=== PATIENT | male | born 1970 | race Caucasian/White ===

== ENCOUNTER 2018-01-08 08:56 | Emergency (ER) | payer BC ==
[2018-01-08 09:02] VITALS: RESP 18
--- NOTE | 2018-01-08 09:18 | ED ---
General Adult HPI - General Chief complaint: Extremity Problem,Nontraumatic Stated complaint: left leg pain Time Seen by Provider: 01/08/18 09:10 Source: patient, RN notes reviewed Mode of arrival: ambulatory Limitations: no limitations - History of Present Illness Initial comments: Patient is a pleasant 47-year-old male presenting to the emergency department with left calf discomfort. Patient states a few weeks ago he did drop a piece of angle iron onto his left great proximal toe. Patient has had discomfort and swelling since that time that is only somewhat improved. Patient states then around a week ago he rolled his ankle. Patient did hear some pops. Patient still has some discomfort of left ankle however that has mostly improved. Patient states the last day or 2 he is having some discomfort of his left calf region. Patient has not noticed swelling. No chest pain. No dyspnea. No fevers. No erythema. - Related Data Home Medications Medication Instructions Recorded Confirmed No Known Home Medications 01/08/18 01/08/18 Allergies Allergy/AdvReac Type Severity Reaction Status Date / Time No Known Allergies Allergy Verified 01/08/18 09:43 Review of Systems ROS Statement: Those systems with pertinent positive or pertinent negative responses have been documented in the HPI. ROS Other: All systems not noted in ROS Statement are negative. Constitutional: Denies: fever Eyes: Denies: eye pain ENT: Denies: ear pain Respiratory: Denies: cough, dyspnea Cardiovascular: Denies: chest pain Endocrine: Denies: fatigue Gastrointestinal: Denies: abdominal pain Genitourinary: Denies: dysuria Musculoskeletal: Denies: back pain Skin: Denies: rash Neurological: Denies: weakness Past Medical History Past Medical History: No Reported History History of Any Multi-Drug Resistant Organisms: None Reported Past Surgical History: Hernia Repair Past Psychological History: No Psychological Hx Reported Smoking Status: Never smoker Past Alcohol Use History: Occasional Past Drug Use History: None Reported General Exam Limitations: no limitations General appearance: alert, in no apparent distress Head exam: Present: atraumatic Eye exam: Present: normal appearance, PERRL ENT exam: Present: normal oropharynx Neck exam: Present: normal inspection Respiratory exam: Present: normal lung sounds bilaterally. Absent: chest wall tenderness Cardiovascular Exam: Present: regular rate, normal rhythm GI/Abdominal exam: Present: soft. Absent: tenderness Extremities exam: Present: calf tenderness (Mild tenderness left mid to lower calf), other (Left proximal first MCP with swelling and possible deformity. There is tenderness present. There is minimal tenderness left lateral ankle. Mild swelling left lateral ankle) Neurological exam: Present: alert. Absent: motor sensory deficit Psychiatric exam: Present: normal affect, normal mood Skin exam: Present: normal color. Absent: rash Course Vital Signs 01/08/18 08:57 Temperature 97.6 F Pulse Rate 55 L Respiratory 18 Rate Blood Pressure 153/111 O2 Sat by Pulse 98 Oximetry Medical Decision Making - Medical Decision Making Patient updated on results - Radiology Data Radiology results: report reviewed (Ultrasound negative for DVT), image reviewed (X-ray of the left foot shows degenerative changes first MTP. No definite acute fracture. X-ray left ankle shows no acute process.) Disposition Clinical Impression: Leg pain Disposition: HOME SELF-CARE Condition: Stable Instructions: Leg Pain (ED) Additional Instructions: Please follow-up with primary care physician in the next couple days for recheck. Return for increased pain, swelling, chest pain or difficulty breathing, worsening symptoms or other concerns. Is patient prescribed a controlled substance at d/c from ED?: No Referrals: Lottie oSrto MD [Primary Care Provider] - 1-2 days Time of Disposition: 10:34
--- NOTE | 2018-01-08 09:56 | US ---
EXAMINATION TYPE: US venous doppler duplex LE LT DATE OF EXAM: 01/08/2018 9:46 AM COMPARISON: NONE CLINICAL HISTORY: Pain. Intermittent left ankle and calf pain following trauma to foot 3 weeks ago SIDE PERFORMED: Left TECHNIQUE: The lower extremity deep venous system is examined utilizing real time linear array sonog you with graded compression, doppler sonography and color-flow sonography. VESSELS IMAGED: External Iliac Vein (EIV) Common Femoral Vein Deep Femoral Vein Greater Saphenous Vein * Femoral Vein Popliteal Vein Small Saphenous Vein * Proximal Calf Veins (* superficial vessels) Grayscale, color doppler, spectral doppler imaging performed of the deep veins of the left lower extr emity. There is normal flow, compressibility, vascular waveforms. Left Leg: Appears negative for DVT IMPRESSION: No sonographic evidence of deep venous thrombosis within the left lower extremity.
--- NOTE | 2018-01-08 10:12 | XR ---
EXAMINATION TYPE: XR foot complete LT, XR ankle complete LT DATE OF EXAM: 01/08/2018 CLINICAL HISTORY: pain TECHNIQUE: Frontal, lateral and oblique images of the left foot are obtained. COMPARISON: None. FINDINGS: Severe degenerative narrowing first metatarsal phalangeal joint. Associated spur formation. Healed fracture second metatarsal. No acute fracture or dislocation appreciated at this time. IMPRESSION: There is no acute fracture or dislocation. ICD 10 NO FRACTURE, INITIAL EVALUATION EXAMINATION TYPE: XR foot complete LT, XR ankle complete LT DATE OF EXAM: 01/08/2018 COMPARISON: NONE HISTORY: Pain TECHNIQUE: 3 views of the left ankle are submitted for evaluation. FINDINGS: There is no evidence for fracture or dislocation. Ankle mortise is intact. Lateral soft tis trevor swelling noted. IMPRESSION: 1. No evidence for acute fracture.
[2018-01-08 10:50] VITALS: BP 132/87; PULSE 64; TEMP 97.8
== END 2018-01-08 10:50 | disposition home or self-care (01) ==
LOC: EC 08:56
DX: M79.605 Pain in left leg (principal); M79.89 Other specified soft tissue disorders; W20.8XXA Other cause of strike by thrown, projected or falling object, initial encounter
CPT/HCPCS: 99284

== ENCOUNTER 2019-02-27 04:29 | Emergency (ER) | payer BC ==
[2019-02-27 04:37] VITALS: RESP 18
[2019-02-27] MEDS ORDERED: SODIUM CHLORIDE 0.9% 500 ML 500 ML IV STA (04:44)
[2019-02-27] MEDS ORDERED: MORPHINE SULFATE 4 MG/ML SYRINGE IV STA (04:44)
--- NOTE | 2019-02-27 04:47 | ED ---
General Adult HPI - General Chief complaint: Abdominal Pain Stated complaint: Abd Pain Time Seen by Provider: 02/27/19 04:34 Source: patient, family, RN notes reviewed, old records reviewed Mode of arrival: ambulatory Limitations: no limitations - History of Present Illness Initial comments: 48-year-old male presenting for evaluation of lower abdominal pain. Pain is been present for approximately 12 hours. Described as an ache in his lower abdomen. nonradiating.Patient had a normal bowel movement prior to arrival. No diarrhea. He had one episode of vomiting which was induced attempt to improve his symptoms. He states he's had subjective fever and chills. No upper abdominal pain. No dysuria or hematuria. Pain is bilateral. No flank pain. No chest pain or dyspnea. - Related Data Home Medications Medication Instructions Recorded Confirmed No Known Home Medications 01/08/18 01/08/18 Allergies Allergy/AdvReac Type Severity Reaction Status Date / Time No Known Allergies Allergy Verified 02/27/19 04:36 Review of Systems ROS Statement: Those systems with pertinent positive or pertinent negative responses have been documented in the HPI. ROS Other: All systems not noted in ROS Statement are negative. Past Medical History Past Medical History: No Reported History History of Any Multi-Drug Resistant Organisms: None Reported Past Surgical History: Hernia Repair Past Psychological History: No Psychological Hx Reported Smoking Status: Never smoker Past Alcohol Use History: Occasional Past Drug Use History: None Reported General Exam Limitations: no limitations General appearance: alert, in no apparent distress Head exam: Present: atraumatic Eye exam: Present: normal appearance, PERRL ENT exam: Present: normal exam Neck exam: Present: normal inspection. Absent: tenderness, meningismus Respiratory exam: Present: normal lung sounds bilaterally. Absent: respiratory distress, wheezes Cardiovascular Exam: Present: regular rate, normal rhythm GI/Abdominal exam: Present: soft. Absent: distended, tenderness, guarding, rebound, rigid Extremities exam: Present: normal inspection, normal capillary refill. Absent: calf tenderness Back exam: Present: normal inspection Neurological exam: Present: alert, oriented X3, CN II-XII intact. Absent: motor sensory deficit Psychiatric exam: Present: normal affect, normal mood Skin exam: Present: warm, dry, intact. Absent: cyanosis, diaphoretic Course Vital Signs 02/27/19 02/27/19 04:34 05:50 Temperature 97.9 F 98.1 F Pulse Rate 62 57 L Respiratory 18 18 Rate Blood Pressure 154/88 127/83 O2 Sat by Pulse 97 95 Oximetry Medical Decision Making - Medical Decision Making 48-year-old male with lower abdominal pain. Patient well-appearing with stable vitals.abdominal exam negative for focal tenderness rebound or guarding. Patient has mild leukocytosis at 12. He has a mild elevation in serum lipase 400 otherwise laboratory testing is unremarkable, urinalysis negative for infection or hemorrhage. X-ray performed which shows some retained stool otherwise unremarkable. CT performed shows a lesion in the right kidney will require 6 month follow-up. This information is conveyed to the patient and he will follow-up with his primary care physician regarding this finding. Additionally patient has some enteritis and retained stool. He will monitor his symptoms over the next 24-48 hours. He will return with worsening or changing symptoms. He will take stool softener if he does not have a bowel movement in the next day. - Lab Data Result diagrams: 02/27/19 04:54 02/27/19 04:54 Lab Results 02/27/19 02/27/19 02/27/19 Range/Units 04:54 04:54 04:54 WBC 12.0 H (3.8-10.6) k/uL RBC 5.20 (4.30-5.90) m/uL Hgb 16.0 (13.0-17.5) gm/dL Hct 46.8 (39.0-53.0) % MCV 90.0 (80.0-100.0) fL MCH 30.8 (25.0-35.0) pg MCHC 34.2 (31.0-37.0) g/dL RDW 12.4 (11.5-15.5) % Plt Count 218 (150-450) k/uL Neutrophils % 79 % Lymphocytes % 15 % Monocytes % 4 % Eosinophils % 1 % Basophils % 0 % Neutrophils # 9.5 H (1.3-7.7) k/uL Lymphocytes # 1.8 (1.0-4.8) k/uL Monocytes # 0.4 (0-1.0) k/uL Eosinophils # 0.1 (0-0.7) k/uL Basophils # 0.1 (0-0.2) k/uL PT (9.0-12.0) sec INR (<1.2) APTT (22.0-30.0) sec Sodium 138 (137-145) mmol/L Potassium 4.4 (3.5-5.1) mmol/L Chloride 107 (98-107) mmol/L Carbon Dioxide 22 (22-30) mmol/L Anion Gap 9 mmol/L BUN 16 (9-20) mg/dL Creatinine 0.73 (0.66-1.25) mg/dL Est GFR (CKD-EPI)AfAm >90 (>60 ml/min/1.73 sqM) Est GFR (CKD-EPI)NonAf >90 (>60 ml/min/1.73 sqM) Glucose 108 H (74-99) mg/dL Plasma Lactic Acid Manuel 0.8 (0.7-2.0) mmol/L Calcium 9.8 (8.4-10.2) mg/dL Total Bilirubin 0.9 (0.2-1.3) mg/dL AST 32 (17-59) U/L ALT 45 (4-49) U/L Alkaline Phosphatase 96 (38-126) U/L Total Protein 7.7 (6.3-8.2) g/dL Albumin 4.8 (3.5-5.0) g/dL Amylase 132 H (30-110) U/L Lipase 459 H (23-300) U/L Urine Color Urine Appearance (Clear) Urine pH (5.0-8.0) Ur Specific [place] (1.001-1.035) Urine Protein (Negative) Urine Glucose (UA) (Negative) Urine Ketones (Negative) Urine Blood (Negative) Urine Nitrite (Negative) Urine Bilirubin (Negative) Urine Urobilinogen (<2.0) mg/dL Ur Leukocyte Esterase (Negative) 02/27/19 02/27/19 Range/Units 04:54 04:54 WBC (3.8-10.6) k/uL RBC (4.30-5.90) m/uL Hgb (13.0-17.5) gm/dL Hct (39.0-53.0) % MCV (80.0-100.0) fL MCH (25.0-35.0) pg MCHC (31.0-37.0) g/dL RDW (11.5-15.5) % Plt Count (150-450) k/uL Neutrophils % % Lymphocytes % % Monocytes % % Eosinophils % % Basophils % % Neutrophils # (1.3-7.7) k/uL Lymphocytes # (1.0-4.8) k/uL Monocytes # (0-1.0) k/uL Eosinophils # (0-0.7) k/uL Basophils # (0-0.2) k/uL PT 10.0 (9.0-12.0) sec INR 0.9 (<1.2) APTT 25.6 (22.0-30.0) sec Sodium (137-145) mmol/L Potassium (3.5-5.1) mmol/L Chloride (98-107) mmol/L Carbon Dioxide (22-30) mmol/L Anion Gap mmol/L BUN (9-20) mg/dL Creatinine (0.66-1.25) mg/dL Est GFR (CKD-EPI)AfAm (>60 ml/min/1.73 sqM) Est GFR (CKD-EPI)NonAf (>60 ml/min/1.73 sqM) Glucose (74-99) mg/dL Plasma Lactic Acid Manuel (0.7-2.0) mmol/L Calcium (8.4-10.2) mg/dL Total Bilirubin (0.2-1.3) mg/dL AST (17-59) U/L ALT (4-49) U/L Alkaline Phosphatase (38-126) U/L Total Protein (6.3-8.2) g/dL Albumin (3.5-5.0) g/dL Amylase (30-110) U/L Lipase (23-300) U/L Urine Color Yellow Urine Appearance Clear (Clear) Urine pH 6.0 (5.0-8.0) Ur Specific [place] 1.026 (1.001-1.035) Urine Protein Negative (Negative) Urine Glucose (UA) Negative (Negative) Urine Ketones Negative (Negative) Urine Blood Negative (Negative) Urine Nitrite Negative (Negative) Urine Bilirubin Negative (Negative) Urine Urobilinogen <2.0 (<2.0) mg/dL Ur Leukocyte Esterase Negative (Negative) Disposition Clinical Impression: Abdominal pain Disposition: HOME SELF-CARE Condition: Good Instructions (If sedation given, give patient instructions): Abdominal Pain (ED) Additional Instructions: Please follow up with her primary care physician regarding abnormal CT findings in the right kidney, please take MiraLAX if you do not have a bowel movement within the next 24 hours. Is patient prescribed a controlled substance at d/c from ED?: No Referrals: Lottie Sorto MD [Primary Care Provider] - 1-2 days Time of Disposition: 07:07
[2019-02-27 05:07] LABS: Appearance,Urine Clear (Clear); Basophils # (A) 0.1 k/uL (0-0.2); Basophils % (A) 0 %; Bilirubin,Urine Negative (Negative); Blood,Urine Negative (Negative); Color,Urine Yellow; Eosinophils # (A) 0.1 k/uL (0-0.7); Eosinophils % (A) 1 %; Glucose,Urine (UA) Negative (Negative); HCT 46.8 % (39.0-53.0); Ketones,Urine Negative (Negative); Leukocyte Esterase,Urine Negative (Negative); Lymphocytes # (A) 1.8 k/uL (1.0-4.8); Lymphocytes % (A) 15 %; MCH 30.8 pg (25.0-35.0); MCHC 34.2 g/dL (31.0-37.0); Mean Platelet Volume 7.7; Monocytes # (A) 0.4 k/uL (0-1.0); Monocytes % (A) 4 %; Neutrophils # (A) 9.5 k/uL (1.3-7.7); Neutrophils % (A) 79 %; Nitrite,Urine Negative (Negative); Platelet Count 218 k/uL (150-450); Protein,Urine Negative (Negative); RDW 12.4 % (11.5-15.5); Specific Gravity,Urine 1.026 (1.001-1.035); Urobilinogen,Urine <2.0 mg/dL (<2.0)
[2019-02-27 05:15] LABS: INR 0.9 (<1.2); Partial Thromboplastin Time 25.6 sec (22.0-30.0)
[2019-02-27 05:17] LABS: ALT 45 U/L (4-49); AST 32 U/L (17-59); African American GFR (CKD) >90 (>60 ml/min/1.73 sqM); Albumin 4.8 g/dL (3.5-5.0); Alkaline Phosphatase 96 U/L (38-126); Amylase 132 U/L (30-110); Anion Gap 9 mmol/L; Blood Urea Nitrogen 16 mg/dL (9-20); Calcium 9.8 mg/dL (8.4-10.2); Carbon Dioxide 22 mmol/L (22-30); Chloride 107 mmol/L (98-107); Glucose 108 mg/dL (74-99); Non-African American GFR(CKD) >90 (>60 ml/min/1.73 sqM); Potassium 4.4 mmol/L (3.5-5.1); Sodium 138 mmol/L (137-145); Total Bilirubin 0.9 mg/dL (0.2-1.3); Total Protein 7.7 g/dL (6.3-8.2)
--- NOTE | 2019-02-27 05:46 | XR ---
EXAM: XR Abdomen, 2 Views CLINICAL HISTORY: ITS.REASON XR Reason: abdominal pain TECHNIQUE: Frontal view of the abdomen/pelvis with upright view of the abdomen. COMPARISON: No relevant prior studies available. FINDINGS: Intraperitoneal space: No free air. Gastrointestinal tract: Nonspecific bowel gas pattern with mild retained stool. No focal small bowel dilatation. Organs: No abnormal calcification projecting over the expected region of the renal shadows. Bones/joints: Unremarkable. IMPRESSION: 1. Nonspecific bowel gas pattern with mild retained stool. 2. No free air. 3. No radiopaque renal calculus.
[2019-02-27 05:51] VITALS: BP 127/83; PULSE 57; TEMP 98.1
--- NOTE | 2019-02-27 06:56 | CT ---
EXAM: CT Abdomen and Pelvis With Intravenous Contrast CLINICAL HISTORY: Lower abdominal pain. Prior hernia repair TECHNIQUE: Axial computed tomography images of the abdomen and pelvis with intravenous contrast. CTDI is 22.8 mGy and DLP is 992.1 mGy-cm. This CT exam was performed using one or more of the following dose reduction techniques: automated exposure control, adjustment of the mA and/or kV according to patient size, and/or use of iterative reconstruction technique. CONTRAST: 100 cc of Isovue-300. COMPARISON: No comparison study low-density lesion in the inferior anterior right hepatic lobe, likely cyst. This measures 1.2 cm. FINDINGS: Lung bases: Bibasilar atelectasis. ABDOMEN: Liver: Mildly fatty liver. Hepatomegaly. Gallbladder and bile ducts: Unremarkable. No calcified stones. No ductal dilation. Pancreas: Unremarkable. No mass. No ductal dilation. Spleen: Unremarkable. No splenomegaly. Adrenals: Small right adrenal lesion, nonspecific. This measures approximately 1.2 cm. Follow-up recommended if there is no prior comparison study to establish stability. Kidneys and ureters: 1.3 cm hyperdense lesion in the posterior upper right kidney. This demonstrates Hounsfield measurement of 92 on portal phase and 81 on delayed image. There is minimal washout. This may represent complex cyst with pseudo-enhancement. Recommend close follow- up to exclude small developing enhancing mass. Eventual follow-up noncontrast CT could be obtained for further clarification as indicated. No evidence for obstructive uropathy. Stomach and bowel: Moderate retained stool in the large bowel. Nonspecific bowel gas pattern with scattered air-fluid levels in distal small bowel. No focal small bowel dilatation. This may reflect enteritis. PELVIS: Appendix: Normal appendix. Bladder: Thickening of the bladder wall likely due to under distention. Reproductive: Coarse calcification in the prostate. ABDOMEN and PELVIS: Intraperitoneal space: Unremarkable. No free air. No significant fluid collection. Bones/joints: No acute fracture. No dislocation. Soft tissues: Tiny periumbilical hernia containing fat. Vasculature: Unremarkable. No abdominal aortic aneurysm. Lymph nodes: Unremarkable. No enlarged lymph nodes. IMPRESSION: 1. Nonspecific bowel gas pattern with findings which may reflect mild enteritis. 2. No bowel obstruction, free fluid or free air. 3. Small hyperdense right renal lesion, most likely complex cyst. Eventual follow-up noncontrast CT could be obtained for further clarification as indicated. Alternatively, short-term follow-up could be obtained in 6 months. 4. Small right adrenal lesion, nonspecific. This can be evaluated with noncontrast CT of abdomen as well. 5. Hepatomegaly. Fatty liver
== END 2019-02-27 07:14 | disposition home or self-care (01) ==
LOC: EC 04:29
DX: K52.9 Noninfective gastroenteritis and colitis, unspecified (principal); K59.00 Constipation, unspecified; D72.829 Elevated white blood cell count, unspecified; R74.8 Abnormal levels of other serum enzymes; N28.89 Other specified disorders of kidney and ureter; R50.9 Fever, unspecified
CPT/HCPCS: 36415; 80053; 82150; 83605; 83690; 85025; 85610; 85730; 81003; 74018; 74177; 99285; 96374; J2270; Q9967